=== PATIENT | male | born 1945 | race Caucasian/White ===

== ENCOUNTER 2017-01-23 19:32 | Emergency (ER) | payer OTHER ==
[~2017-01-23] VITALS: Ht 172.7 cm; Wt 87.7 kg
[~2017-01-23 19:32] MED LIST: ATIVAN0.5 MG PO; ATORVASTATIN CA20 MG PO; FINASTERIDE5 MG PO; METOPROL TAR25 M1 PO; MULT1 PO; NASONEX50 MCG/AC NAB; PROTONIX40 M2 PO; TRAZODONE100 MG PO; ZOLOFT100 MG PO
[2017-01-23] MEDS ORDERED: RANITIDINE150 M1 PO (19:54)
[2017-01-23] MEDS ORDERED: PROTONIX40 M2 PO (19:54)
[2017-01-23] MEDS ORDERED: LOSARTAN POT25 MG PO (19:55)
[2017-01-23] MEDS ORDERED: LEXAPRO10 MG PO (19:55)
[2017-01-23 20:23] LABS: HEMATOCRIT 41.9 % (39.0-50.0); HEMOGLOBIN 14.1 g/dl (14.0-18.0); IMMATURE GRANULOCYTES 0.3 % (0.0-1.0); MEAN CORPUSCULAR HGB CONC 33.7 g/L CALC (32.0-36.0); NEUT# 3.99 thou/uL (1.82-7.42); RED BLOOD COUNT 4.15 mill/uL (4.70-6.10); RED CELL DISTRI WIDTH 12.3 % (11.5-15.5)
[2017-01-23 20:29] LABS: INFLUENZA A NONE DETECTED (NONE DETECT); INFLUENZA B NONE DETECTED (NONE DETECT)
[2017-01-23 20:37] LABS: ALBUMIN 4.4 g/dL (3.2-5.0); ALKALINE PHOSPHATASE 62 u/l (38-126); ANION GAP 13 (6-22 (CALC)); BILIRUBIN, TOTAL 0.5 mg/dL (0.0-1.4); BUN 18 mg/dL (8-23); BUN/CREATININE RATIO 16 (12-20 (CALC)); CARBON DIOXIDE 31 mmol/l (22-30); CHLORIDE 106 mmol/l (95-108); CREATININE 1.1 mg/dL (0.7-1.3); GFR > 60 ML/MIN (>=60 (CALC)); GFR FOR AFR.AMER. > 60 ML/MIN (>=60 (CALC)); GLUCOSE 90 mg/dL (82-115); POTASSIUM 5.1 mmol/l (3.5-5.1); SGOT/AST 33 u/l (19-48); SGPT/ALT 38 u/l (11-66); SODIUM 144 mmol/l (137-146); TOTAL PROTEIN 6.8 g/dL (6.3-8.2)
[2017-01-23 20:40] LABS: ACT PARTIAL THROMBO TIME 22.4 SECONDS (20.0-32.5); INTERNATIONAL NORMALIZED RATIO 0.9 RATIO (0.7-1.3); PROTHROMBIN TIME 10.5 SECONDS (9.0-12.5)
[2017-01-23] MEDS ORDERED: CODEINE/GUAIFEN1 SOL PO (22:03)
[2017-01-23] MEDS ORDERED: PROVENTIL HFA IN (22:03)
[2017-01-23] MEDS ORDERED: AUGMENTIN875TAB PO (22:03)
[2017-01-23 22:20] VITALS: BP 140/72
== END 2017-01-23 22:20 | disposition home or self-care (01) | DRG 203 ==
LOC: ED 19:32
PROVIDERS: Emergency Medicine
DX: J40 Bronchitis, not specified as acute or chronic (principal); J02.0 Streptococcal pharyngitis; F03.90 Unspecified dementia, unspecified severity, without behavioral disturbance, psychotic disturbance, mood disturbance, and anxiety; D86.9 Sarcoidosis, unspecified; I10 Essential (primary) hypertension

== ENCOUNTER 2017-03-07 21:15 | Emergency (ER) | payer OTHER ==
[~2017-03-07] VITALS: Ht 172.7 cm; Wt 95.0 kg
[~2017-03-07 21:15] MED LIST changes: +AUGMENTIN875TAB PO; +CODEINE/GUAIFEN1 SOL PO; +LEXAPRO10 MG PO; +LOSARTAN POT25 MG PO; +PROVENTIL HFA IN; +RANITIDINE150 M1 PO
[2017-03-07 22:50] VITALS: BP 148/79
== END 2017-03-07 22:49 | disposition home or self-care (01) | DRG 125 ==
LOC: ED 21:15
DX: S05.02XA Injury of conjunctiva and corneal abrasion without foreign body, left eye, initial encounter (principal); W45.8XXA Other foreign body or object entering through skin, initial encounter; Y93.89 Activity, other specified; Y92.009 Unspecified place in unspecified non-institutional (private) residence as the place of occurrence of the external cause